=== PATIENT | male | born 1950 ===

== ENCOUNTER → 2020-11-11 16:39 | Outpatient (CLI) | payer MEDICARE, OTHER, SELFPAY ==
[2020-11-11 17:55] LABS: COVID19 -Nasal RAPID Negative (Negative)
== END ==
PROVIDERS: Family Provider Family Medicine; PCP Family Medicine; Visit Provider Physician Assistant
DX: Z20.822 Contact with and (suspected) exposure to COVID-19 (principal)
CPT/HCPCS: 87635

== ENCOUNTER 2020-11-12 11:41 | Day surgery (SDC) | payer MEDICARE, OTHER, SELFPAY ==
[2020-11-12] VITALS (7 sets, daily range): BP systolic 132–164; BP diastolic 64–78; PULSE 68–73; RESP 10–18; TEMP 36.4–37.3; O2SAT 96–99; BMI 37.1
--- NOTE | 2020-11-12 | DI.RAD.S_ITS ---
PROCEDURE: XR ANKLE RT MIN 3V INDICATIONS: ORIF RIGHT ANKLE TECHNIQUE: 2 views of the ankle were acquired. COMPARISON: None. FINDINGS: Bones: 2 intraoperative fluoroscopic images of the right ankle were performed. Sideplate and screw fixation and tibiofibular fixation are noted good positioning. Soft tissues: No tibiotalar joint effusion. Achilles tendon appears normal. IMPRESSION: Postoperative changes of ORIF of a right distal fibular fracture. Dictated by: Luis Daniel Angeles M.D. on 11/12/2020 at 16:50 Approved by: Luis Daniel Angeles M.D. on 11/12/2020 at 16:52
[2020-11-12] MEDS: LACTATED RINGERS 1,000 ML 42 ML IV (11:57)
--- NOTE | 2020-11-12 12:25 | PM.PREOP ---
Pre-operative Note COVID-19 COVID-19 status: Negative Interval Note History & Physical reviewed/Exam performed by Physician: Yes Changes to H&P: No
[2020-11-12] MEDS: CEFAZOLIN 2 GM/100 ML FROZ.PIGGY IV (14:23)
--- NOTE | 2020-11-12 14:50 | PM.PROC.1 ---
Procedures Date/Time Date of procedure: 11/12/20 Time of procedure: 14:10 Nerve Block Time out performed: Yes Local anesthetic used: other (5mL 2% Lidocaine, 15mL 0.5% Ropivacaine) Location of anesthetic used: lateral popliteal Amount of anesthesia used (mL): 20 Nerve blocks: other (sciatic nerve) Procedure successful: Yes Patient tolerated procedure: well Complications: none Additional comments: RIGHT Ultrasound guided lateral popliteal sciatic nerve block for post operative pain management, as discussed with surgeon. Risks, benefits discussed with patient. Consent verified. Site marked by surgeon. Time out performed. Standard ASA monitors applied, NC O2, 2mg versed. Pt supine. Chloroprep. Sterile US sleeve and gel. Sciatic nerve identified proximal to popliteal fossa, at bifurcation. Lidocaine local skin wheal. 100mm x 21g Pajunk needle advanced with in-plane US guidance to nerve. Negative aspiration. 5mL 2% lidocaine and 15mL 0.5% ropivacaine injected with intermittent negative aspiration. Good LA spread noted on US. No pain, no paresthesias. VSS. Tolerated well.
--- NOTE | 2020-11-12 14:57 | SUR.OPER ---
Lateral on padded OR bed, head on pillow, gel axillary roll in place, bottom leg bent with gel pad under knee to foot, upper leg draped free and supported with blankets secured to bed with tape
[2020-11-12] MEDS: BUPIVACAINE 0.25% W/ EPI (PF) 10 ML VIAL 20 ML INJ (15:19)
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
--- NOTE | 2020-11-12 16:25 | SUR.PHASEI ---
Pt received to PACU after general anesthesia. Airway patent, self maintained. Report from Dr Bowman and Britany RN. Pt denies pain. Pt able to wiggle toes. Unable to feel touch to toes. Unable to assess pedal pulse D/T dressing.
[2020-11-12] MEDS: OXYCODONE/ACETAMINOPHEN 5/325 TABLET 1 TAB PO (16:47)
--- NOTE | 2020-11-12 17:37 | SUR.PHASEII ---
Pt ready to go, failed attempt to void on side of bed using urinal, assisted in to BR, pt able to void on toilet. Assisted pt to dress, pt left unit in stable condition.
== END 2020-11-12 17:25 | disposition home or self-care (01) ==
PROVIDERS: Family Provider Family Medicine; PCP Family Medicine; Referring Provider Orthopaedic Surgery Foot and Ankle Surgery; Visit Provider Orthopaedic Surgery Foot and Ankle Surgery
PROC: 0SSF04Z Reposition Right Ankle Joint with Internal Fixation Device, Open Approach (ICD-10-PCS; CPT 27792; principal; 2020-11-12 13:15)
DX: S82.831A Other fracture of upper and lower end of right fibula, initial encounter for closed fracture (principal); S93.431A Sprain of tibiofibular ligament of right ankle, initial encounter; W11.XXXA Fall on and from ladder, initial encounter; I10 Essential (primary) hypertension; E11.9 Type 2 diabetes mellitus without complications; G47.33 Obstructive sleep apnea (adult) (pediatric); Z79.84 Long term (current) use of oral hypoglycemic drugs
CPT/HCPCS: 27792; 27829; 73610; 76000; 82962; J0690; J2250; J2405; J2704; J3010